=== PATIENT | male | born 1960 | race Caucasian/White ===

== ENCOUNTER 2023-10-06 14:54 | Emergency (ER) | payer MEDICAID ==
[~2023-10-06] VITALS: Ht 177.8 cm; Wt 91.0 kg
[2023-10-06 15:00] VITALS: O2SAT 99
[2023-10-06 17:03] LABS: CHLORIDE 109 mEq/L (98-107); POTASSIUM 3.9 mEq/L (3.5-5.1); SODIUM 142 mEq/L (136-145)
[2023-10-06 17:04] LABS: CALCIUM 9.2 mg/dL (8.7-10.4); CARBON DIOXIDE 26 mEq/L (21-32)
[2023-10-06 17:09] LABS: CREATININE 1.1 mg/dL (0.6-1.3); GLUCOSE 123 mg/dL (70-105); UREA NITROGEN BLOOD 19 mg/dL (9-23)
[2023-10-06 17:18] LABS: HEMATOCRIT 44.8 % (42.0-52.0); HEMOGLOBIN 14.9 g/dL (14.0-18.0); MEAN CORPUSCULAR HEMOGLOBIN 29.8 pg (28.0-32.0); MEAN CORPUSCULAR HGB CONC 33.2 g/dL (31.0-37.0); MEAN CORPUSCULAR VOLUME 89.8 fL (80.0-94.0); PLATELET 294 x1000/uL (130-400); RED BLOOD CELL COUNT 4.99 mill/uL (4.7-6.1); RED CELL DISTRIBUTION WIDTH 14.9 % (11.6-14.6); WHITE BLOOD COUNT 9.1 x1000/uL (4.5-11.0)
[2023-10-06 17:20] LABS: ETHANOL BLOOD < 10 mg/dL (<10)
[2023-10-06] MEDS: AMLODIPINE 5MG TABLET PO NR (17:44)
[2023-10-06] MEDS: AMLODIPINE 10MG TABLET PO ONE (17:45)
[2023-10-06 20:06] VITALS: BP 176/95; PULSE 95; RESP 16; TEMP 98.9
== END 2023-10-06 20:07 | disposition home or self-care (01) ==
LOC: ER 14:54
DX: F15.10 Other stimulant abuse, uncomplicated (principal)
CPT/HCPCS: 36415; 80048; 80320; 85027; 99285; G0480